=== PATIENT | male | born 1960 | race Caucasian/White ===

== ENCOUNTER 2018-03-06 10:57 | Observation (INO) | payer SELFPAY ==
[2018-03-06 11:36] LABS: ABS Basophils 0 10^3/ul (0-0.2); ABS Eosinophils 0.1 10^3/ul (0-0.6); ABS Lymphocytes 1.4 10^3/ul (1.0-4.8); ABS Monocytes 0.6 10^3/ul (0-0.8); ABS Neutrophils 5.1 10^3/ul (1.5-7.7); ABS Nucleated RBC 0 10^3/ul; Eosinophil % 1.5 % (0-6); Hematocrit 44 % (42-52); Hemoglobin 15.1 g/dl (14.0-18.0); Lymphocyte % 19.4 % (25-47); Mean Corpuscular HGB Conc 35 g/dl (31-36); Mean Corpuscular Hemoglobin 32 pg (27-31); Mean Corpuscular Volume 94 fL (80-94); Mean Platelet Volume 7.6 um3 (7.4-10.4); Nucleated Red Blood Cells % 0.1; Platelet Count 235 10^3/ul (150-450); Red Blood Count 4.66 10^6/ul (4.0-5.4); Red Cell Distribution Width 13 % (10.5-15); White Blood Count 7.3 10^3/ul (3.5-10.8)
[2018-03-06 11:47] LABS: EGFR Non-African American 80.1 (>60)
--- NOTE | 2018-03-06 12:11 | RAD ---
Indication: Chest pain. 2 views of the chest including dual energy PA views demonstrate no mediastinal shift. Heart is of normal size and configuration. Lung pitt appear clear. IMPRESSION: NO ACTIVE CARDIOPULMONARY DISEASE IS IDENTIFIED.
[2018-03-06] MEDS ORDERED: Nitroglycerin TAB 0.4 MG* 0.4 MG TAB SL PRN (12:36)
[2018-03-06] MEDS ORDERED: Acetaminophen TAB* 325 MG PO PRN (12:36)
--- NOTE | 2018-03-06 13:27 | ED ---
Shannan Gutierrez Rebecca, scribed for Mandy Ventura MD on 03/06/18 at 1113 . Palpitations / Dysrhythmia - HPI Summary HPI Summary: Pt is a 57 y/o M accompanied by his , Faustina, who presents to ED after being referred by his PCP for EKG changes. Pt was seen by his PCP, Dr. Hearn in [place], [place], this morning as a follow up after being evaluated by [facility] on 03/03/18. While at his PCP's office, his PCP noticed EKG changes and referred him to [facility]. Pt was seen 3 days ago (Tuesday, 03/03) at [facility]'s ED due to chest tightness and elevated BP. Pt began experiencing chest tightness that was also in the back, across the shoulder blades, (03/02, 4 days ago) afternoon. That day, his BP was elevated at home, being measured in the mid-140s /[id number], and his HR was also slightly higher than usual. He woke up at 0230 Tuesday morning with continued chest tightness and elevated BP (155/105) and a pulse of 90 bpm. He then went to [facility] where he had a CXR, EKG, and 2 neg troponins (3 hours apart) and a neg d dimer, and was given 1 NTG which did not change symptoms as well as a Duoneb which slightly improved symptoms. CXR and troponins were negative. He was D/C with Prednisone and Albuterol, neither of which have been used today. His chest tightness resolved gradually over the weekend, mostly improved on Tuesday (03/04, 2 days ago), and completely resolved on Tuesday (03/05, yesterday). Currently denies any CP. Was given 2x [address] Hearn's office today. Last stress test was ~30 years ago and he does not have a distance learning administrator. PMHx HTN (takes Lisinopril 10 mg), HLD (takes Atorvastatin 10 mg); Negative PMHx asthma and DM. FHx CAD (father - MT and CABG in his early 60s) and stroke ( father - at 69). No PSHx. - History of Current Complaint Chief Complaint: EDDysrhythmPalp Time Seen by Provider: 03/06/18 11:12 Hx Obtained From: Patient, Family/Heel Caser - , Medical Records - from [facility] and Dr. Hearn's office Onset/Duration: Lasting Days - (4 days ago) through Tuesday (yesterday) , Resolved - No chest tightness at present, Other - EKG changes present Timing: Intermittent Episodes Lasting: - hours Severity Initially: Moderate Severity Currently: None Character: Pounding - tightness in chest Aggravating: Nothing Alleviating: Other - Duoneb (slightly imrpoved chest tightness at [facility]) Associated Signs & Symptoms: Negative - Risk Factors Cardiac: Hypertension, Elevated Lipids, Family History Pulmonary Embolism: Negative - Allergy/Home Medications Allergies/Adverse Reactions: Allergies Allergy/AdvReac Type Severity Reaction Status Date / Time No Known Allergies Allergy Verified 03/06/18 11:10 Home Medications: Home Medications Atorvastatin* [Lipitor*] 10 mg PO DAILY 03/06/18 [History Confirmed 03/06/18] Lisinopril TAB* [Prinivil TAB*] 10 mg PO DAILY 03/06/18 [History Confirmed 03/06] PMH/Surg Hx/FS Hx/Imm Hx Previously Healthy: No Endocrine/Hematology History: Denies: Hx Diabetes Cardiovascular History: Reports: Hx Hypercholesterolemia, Hx Hypertension Respiratory History: Denies: Hx Asthma - Surgical History Surgery Procedure, Year, and Place: none Infectious Disease History: No Infectious Disease History: Denies: Traveled Outside the [place] in Last 30 Days - Family History Known Family History: Positive: Cardiac Disease - father in his 60's, had CABG , Other - Stroke (father) - Social History Occupation: Employed Full-time - works with horses at [employer] Lives: With Family Alcohol Use: Daily Substance Use Type: Reports: None Smoking Status (MU): Never Smoked Tobacco Review of Systems Negative: Fever Positive: Other - EKG changes. Negative: Chest Pain - no CP presently Respiratory: Negative Gastrointestinal: Negative Musculoskeletal: Negative Skin: Negative Neurological: Negative Psychological: Normal All Other Systems Reviewed And Are Negative: Yes Physical Exam - Summary Physical Exam Summary: Appearance: Well-appearing, no pain distress, Well-nourished, hypertensive Skin: Warm, color reflects adequate perfusion, dry Head: Normal Head/Face inspection, Atraumatic Eyes: Conjunctiva clear ENT: Normal inspection Neck: Supple, no nodes, no JVD. Respiratory: Lungs clear, Normal breath sounds, no respiratory distress Cardio: RRR, No murmur, pulses normal, brisk capillary refill Abdomen: soft, nontender Bowel sounds: present Musculoskeletal: Strength Intact/ ROM intact. No calf tenderness. No edema. Psychological: Normal Neuro: Alert, muscle tone normal, no focal deficit Triage Information Reviewed: Yes Vital Signs On Initial Exam: Initial Vitals Temp Pulse Resp BP Pulse Ox 98.5 F 77 22 173/112 97 03/06/18 11:08 03/06/18 11:08 03/06/18 11:08 03/06/18 11:08 03/06/18 11:08 Vital Signs Reviewed: Yes Diagnostics - Vital Signs Vital Signs Temp Pulse Resp BP Pulse Ox 03/06/18 11:08 98.5 F 77 22 173/112 97 - Laboratory Lab Results: Lab Results 03/06/18 03/06/18 03/06/18 Range/Units 11:13 11:13 11:13 WBC 7.3 (3.5-10.8) 10^3/ul RBC 4.66 (4.0-5.4) 10^6/ul Hgb 15.1 (14.0-18.0) g/dl Hct 44 (42-52) % MCV 94 (80-94) fL MCH 32 H (27-31) pg MCHC 35 (31-36) g/dl RDW 13 (10.5-15) % Plt Count 235 (150-450) 10^3/ul MPV 7.6 (7.4-10.4) um3 Neut % (Auto) 70.7 (38-83) % Lymph % (Auto) 19.4 L (25-47) % [place] % (Auto) 7.8 H (0-7) % Eos % (Auto) 1.5 (0-6) % Baso % (Auto) 0.6 (0-2) % Absolute Neuts (auto) 5.1 (1.5-7.7) 10^3/ul Absolute Lymphs (auto) 1.4 (1.0-4.8) 10^3/ul Absolute Monos (auto) 0.6 (0-0.8) 10^3/ul Absolute Eos (auto) 0.1 (0-0.6) 10^3/ul Absolute Basos (auto) 0 (0-0.2) 10^3/ul Absolute Nucleated RBC 0 10^3/ul Nucleated RBC % 0.1 APTT 31.2 (26.0-36.3) seconds Sodium 139 (139-145) mmol/L Potassium 3.9 (3.5-5.0) mmol/L Chloride 103 (101-111) mmol/L Carbon Dioxide 28 (22-32) mmol/L Anion Gap 8 (2-11) mmol/L BUN 18 (6-24) mg/dL Creatinine 0.97 (0.67-1.17) mg/dL Est GFR ( Amer) 103.0 (>60) Est GFR (Non-Af Amer) 80.1 (>60) BUN/Creatinine Ratio 18.6 (8-20) Glucose 117 H (70-100) mg/dL Lactic Acid (0.5-2.0) mmol/L Calcium 9.2 (8.6-10.3) mg/dL Magnesium 2.0 (1.9-2.7) mg/dL Total Bilirubin 0.50 (0.2-1.0) mg/dL AST 26 (13-39) U/L ALT 29 (7-52) U/L Alkaline Phosphatase 58 (34-104) U/L CK-MB (CK-2) 4.2 (0.6-6.3) ng/mL Troponin I 0.00 (<0.04) ng/mL Total Protein 7.1 (6.4-8.9) g/dL Albumin 4.3 (3.2-5.2) g/dL Globulin 2.8 (2-4) g/dL Albumin/Globulin Ratio 1.5 (1-3) / Range/Units 11:13 WBC (3.5-10.8) 10^3/ul RBC (4.0-5.4) 10^6/ul Hgb (14.0-18.0) g/dl Hct (42-52) % MCV (80-94) fL MCH (27-31) pg MCHC (31-36) g/dl RDW (10.5-15) % Plt Count (150-450) 10^3/ul MPV (7.4-10.4) um3 Neut % (Auto) (38-83) % Lymph % (Auto) (25-47) % [place] % (Auto) (0-7) % Eos % (Auto) (0-6) % Baso % (Auto) (0-2) % Absolute Neuts (auto) (1.5-7.7) 10^3/ul Absolute Lymphs (auto) (1.0-4.8) 10^3/ul Absolute Monos (auto) (0-0.8) 10^3/ul Absolute Eos (auto) (0-0.6) 10^3/ul Absolute Basos (auto) (0-0.2) 10^3/ul Absolute Nucleated RBC 10^3/ul Nucleated RBC % APTT (26.0-36.3) seconds Sodium (139-145) mmol/L Potassium (3.5-5.0) mmol/L Chloride (101-111) mmol/L Carbon Dioxide (22-32) mmol/L Anion Gap (2-11) mmol/L BUN (6-24) mg/dL Creatinine (0.67-1.17) mg/dL Est GFR ( Amer) (>60) Est GFR (Non-Af Amer) (>60) BUN/Creatinine Ratio (8-20) Glucose (70-100) mg/dL Lactic Acid 1.6 (0.5-2.0) mmol/L Calcium (8.6-10.3) mg/dL Magnesium (1.9-2.7) mg/dL Total Bilirubin (0.2-1.0) mg/dL AST (13-39) U/L ALT (7-52) U/L Alkaline Phosphatase (34-104) U/L CK-MB (CK-2) (0.6-6.3) ng/mL Troponin I (<0.04) ng/mL Total Protein (6.4-8.9) g/dL Albumin (3.2-5.2) g/dL Globulin (2-4) g/dL Albumin/Globulin Ratio (1-3) Result Diagrams: 03/06/18 11:13 03/06/18 11:13 Lab Statement: Any lab studies that have been ordered have been reviewed, and results considered in the medical decision making process. - Radiology CXR Xray Interpretation: No Acute Changes - NO ACTIVE CARDIOPULMONARY DISEASE IS IDENTIFIED. ED physician reviewed this radiology report. Radiology Interpretation Completed By: Radiologist - EKG 1106 Cardiac Rate: NL - 81 bpm EKG Rhythm: Sinus Rhythm EKG Interpretation: 0.[address] elevations in leads 2, 3, and aVF, prolonged IVCT (113), nl QTC Re-Evaluation - Re-Evaluation First Eval Re-Evaluation Time: 11:56 Change: Unchanged Comment: Updated patient and on admission status. Course/Dx - Course Assessment/Plan: Pt is a 57 y/o M accompanied by his , Faustina, who presents to ED after being referred by his PCP for EKG changes. Pt was seen by his PCP, Dr. Hearn in [place], [place], this morning as a follow up after being evaluated by [facility]. While there, his PCP noticed EKG changes and referred him to [facility]. At [facility] on 03/03/18 pt had neg trop x 2 and neg d dimer, and EKG in Dr. Hearn's office is changed c/w EKG in [facility]. Currently denies any CP. Was given 2x [address] Hearn's office today. Last stress test was ~30 years ago and he does not have a distance learning administrator. PMHx HTN (takes Lisinopril 10 mg), HLD (takes Atorvastatin 10 mg); Negative PMHx asthma and DM. FHx CAD (father - MT and CABG in his early 60s) and stroke ( father - at 69). No PSHx. In [facility] ED course, bloodwork was done, including a troponin of 0.00. CXR reveals no acute findings. EKG done at [address] elevations in leads 2, 3, and aVF, with prolonged IVCT (113), nl QTC and an axis of 5 with sinus rhythm at a rate of 81 bpm. Discussed care of pt with Dr. Fontenot who accepts pt for admission. Pt is stable and will be admitted with Dx of HTN under poor control and EKG abnormalities. High BP noted. Pt medications reviewed this visit. - Diagnoses Differential Diagnosis/HQI/PQRI: Positive: Congestive Heart Failure, Coronary Artery Disease, Pulmonary Embolism Provider Diagnoses: EKG abnormalities, Hypertension, poor control - Physician Notifications Discussed Care Of Patient With: Sukichelsea Fontenot Time Discussed With Above Provider: 11:54 Instructed by Provider To: Admit As Observation Discharge - Sign-Out/Discharge Documenting (check all that apply): Discharge/Admit/Transfer - Admit - Discharge Plan Condition: Stable Disposition: ADMITTED TO [facility] Referrals: Li Hearn MD [Primary Care Provider] - - Billing Disposition and Condition Condition: STABLE Disposition: [facility] The documentation as recorded by the Shannan gagnon Rebecca accurately reflects the service I personally performed and the decisions made by , Mandy Ventura MD.
--- NOTE | 2018-03-06 14:32 | HP ---
CC: Dr. Li Hearn * HISTORY AND PHYSICAL: DATE OF ADMISSION: 03/06/18 TIME OF EVALUATION: 12:15 p.m. CHIEF COMPLAINT: Chest pain. HISTORY OF PRESENT ILLNESS: Mr. Solis is a 57-year-old male with a past medical history of hypertension, hyperlipidemia that on 03/02/18 developed retrosternal discomfort radiating to his back that he thought was secondary to spicy food. He went home, the discomfort persisted, he checked his blood pressure and it was 140/90. He states that this is an elevated number for him, but it can happen after he has a stressful day at work. Overnight he woke up and the chest discomfort was more intense. His measured his blood pressure, it was 150/100 and he decided to go to the emergency room at [facility] for further evaluation. Records from [place] state the patient was complaining of mid sternal chest pressure not associated with diaphoresis, nausea, or shortness of breath. His EKG was read as normal ST-T. He was described as being very hypertensive with blood pressure of 164/113. He received aspirin, sublingual nitro, and his blood pressure improved, but he still had some chest tightness. He also received a DuoNeb and he states that he was able to breathe a little better after that. He had serial troponins and a D-dimer that were negative and he was discharged with albuterol and prednisone to follow up with Cardiology for an outpatient stress test. The patient states he did not take the prednisone and the albuterol and initially he was feeling better. He states that today he had an appointment with his primary care provider and by the time he went to see her his chest discomfort was completely resolved. She performed an EKG in her office and found that he had ST elevations in II, aVL, and aVF with ST straightening in V4 to V6 and this was new when compared to the prior EKG she had from August 2016, so for that reason she referred him back to the emergency room and the patient elected to come to our facility instead of going back to [place]. He states that when the pain was severe it was 5/10 with a squeezing sensation like he could not take a deep breath. The pain was also worse when he leaned forward. He denies fever, chills, cough, lower extremity pain or edema. He states that he last had a severe cold in November, but since then has been feeling well. He states that once a month he travels to [facility] as they have a home there, last time was a month ago, but he states that he takes precautions during the trips, stopping multiple times to walk around. He denies nausea, vomiting, diarrhea, or urinary symptoms. PAST MEDICAL HISTORY: 1. Hypertension. 2. Hyperlipidemia. MEDICATION LIST: 1. Lisinopril 10 mg p.o. daily. 2. Atorvastatin 10 mg p.o. daily. ALLERGIES: No known drug allergies. FAMILY HISTORY: Father had high cholesterol, gout, lymphoma, hypertension, coronary artery disease, and passed with stroke. His mother had factor V Leiden deficiency, possible Emely Gehrig's disease. One of his brothers has hyperlipidemia. SOCIAL HISTORY: The patient denies tobacco abuse. He drinks 1 drink a day, usually wine. 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 Surrogate decision maker is his , Ayah Solis, phone number is [phone]. REVIEW OF SYSTEMS: A 14-point review of systems was performed and all the pertinent negative and positive findings are in the HPI. PHYSICAL EXAMINATION GENERAL: The patient is a pleasant gentleman, sitting up in the ER stretcher, in no acute distress. VITAL SIGNS: Temperature 98.5, heart rate is 77, respiratory rate is 19, oxygen saturation is 96% on room air, blood pressure is 148/98. NECK: There are no bruits. CHEST: Breath sounds present bilaterally with no added sounds. CVS: Normal S1, S2. Regular rate and rhythm. ABDOMEN: Soft, nontender, nondistended. Bowel sounds are present. EXTREMITIES: The patient has chronic skin discoloration with dystrophic nails suggestive of venous insufficiency. There is no edema, no calf tenderness. NEURO: He is alert, oriented x3. Able to move all 4 extremities. LABORATORY AND IMAGING DATA: The patient had a CBC that showed a WBC of 7.3, hemoglobin of 15.1, hematocrit of 44, platelets of 235 with 70% neutrophils. APTT is 31. Chemistry showed a sodium of 139, potassium of 3.9, chloride of 103 , bicarb of 29, BUN of 18, creatinine of 0.97, glucose of 117, lactic acid of 1.6, calcium of 9.2, magnesium of 2. LFTs are normal. First troponin was negative. Chest x-ray showed no active cardiopulmonary disease and EKG done on 03/06/18 at [address] elevations in leads II, aVL and mild in V4, V5; similar to the EKG he had done at his PCP today. ASSESSMENT AND PLAN: Mr. Solis is a 57-year-old male with a past medical history of hypertension and hyperlipidemia that presented to the emergency room with complaints of chest pain. 1. Chest pain, rule out acute coronary syndrome. The patient's chest pain has multiple different factors that are suggestive for etiologies. He says the pain was retrosternal radiating to his back and initially he thought it was something GI related associated with spicy food he had eaten. As the pain persisted and he was hypertensive he thought it could be something cardiac. The fact that the pain got worse when he leaned forward associated with the ST elevation with normal troponins may suggest pericarditis, but he denies any recent infectious process. He states the last time he was sick was in November. Also the fact that he was hypertensive, the pain was radiating to his back, it is concerning for dissection. The patient will be admitted to telemetry floor. We are going to check serial troponins. He is going to have a CTA to rule out dissection and if all those tests are negative he will then have an exercise Myoview stress test. The likelihood of pulmonary embolism at this point is low even though he had a trip to [facility] earlier this month. His D-dimer was negative in the emergency room in [place] and he has no lower extremity edema or calf pain and other diagnoses are more likely than pulmonary embolism at this point. He already received an aspirin. We are going to continue his atorvastatin and lisinopril. 2. Hypertension. It is borderline elevated at this time, but on ER arrival it was 173/112 and I suspect the patient will need a higher dose of lisinopril on discharge. 3. Hyperlipidemia. We will continue atorvastatin. 4. DVT prophylaxis: The patient has a score of 2 on the DVT Prophylaxis Risk Assessment Guide and he will be started on subcutaneous heparin. 5. Code status is full. TIME SPENT: Approximately 55 minutes was spent with the patient and 's interview, medical records review, physical examination to complete this admission, more than half of this time was spent [id number] with the patient and coordination of care. [id number]/[facility] #: [id number] TIO
[2018-03-06] MEDS: Heparin VIAL(*) 5000 UNITS/ML VIAL (FIVE THOUSAND) SUBCUT SCH ×2 (14:33→21:07)
[2018-03-06] MEDS: Aspirin EC TAB* 81 MG TAB.EC PO SCH (14:34)
[2018-03-06] MEDS: Atorvastatin* 10 MG TAB PO SCH (14:37)
[2018-03-06] MEDS: Lisinopril TAB* 10 MG PO SCH (14:37)
[2018-03-06] MEDS ORDERED: Iohexol 350* (CONTRAST) 500 ML MDV IV ONE (15:53)
--- NOTE | 2018-03-06 16:23 | ECHO ---
Patient: [facility] Rec#: [id number] : 1960 Date: 03/06/2018 Age: 57y Height: 190.5 cm / 75.0 in Weight: 101.15 kg / 222.9 lbs Sex: M BSA: 2.3 Room#: 443 Admit Date#: 03/06/2018 Type: Inpatient Referring: Suki Ambrosio MD Reading: Cy Castle DO Mobile Marketing Manager: Parisa Robledo,ELSACS,RDMS CC: Li Hearn MD Transthoracic Echocardiogram Indication: CP, ABN EKG BP: 153/93 HR: 75 Rhythm: NSR Findings History: HTN, HLD Technical Comments: The study quality is good. Left Ventricle: The left ventricular chamber size is normal. Mild concentric left ventricular hypertrophy is observed. Global left ventricular wall motion and contractility are within normal limits. There is normal left ventricular systolic function. The estimated ejection fraction is 55-60%. There is no consistent Doppler evidence of clinically significant diastolic dysfunction. Left Atrium: The left atrial chamber size is normal. Right Ventricle: The right ventricular chamber size and systolic function are within normal limits. Right Atrium: The right atrium is slightly dilated. Aortic Valve: The aortic valve is trileaflet. There is no evidence of aortic valve thickening. Systolic excursion of the aortic valve is normal. There is a trace of aortic regurgitation. There is no evidence of aortic stenosis. Mitral Valve: The mitral valve leaflets appear normal. There is a trace of mitral regurgitation. There is no evidence of mitral stenosis. Tricuspid Valve: The tricuspid valve leaflets are normal. There is mild tricuspid regurgitation. There is evidence of mild pulmonary hypertension. Pulmonic Valve: The pulmonic valve appears normal. There is a trace pulmonic regurgitation. There is no pulmonic stenosis. Pericardium: There is no significant pericardial effusion. Aorta: There is mild dilatation of the ascending aorta. There is no dilatation of the aortic arch. There is mild dilatation of the aortic root. Pulmonary Artery: The main pulmonary artery appears normal. Venous: The inferior vena cava is not visualized. Conclusions The left ventricular chamber size is normal. Mild concentric left ventricular hypertrophy is observed. There is normal left ventricular systolic function. The estimated ejection fraction is 55-60% with no obvious segmental wall motion abnormalities noted. The left atrial chamber size is normal. The right ventricular chamber size and systolic function are within normal limits. There is mild tricuspid regurgitation. There is evidence of mild pulmonary hypertension. The aortic root and ascending aorta are 3.8 cm, probably normal for body size None prior for comparison at time of interpretation Measurements Name Value Normal Range RVIDd (AP) 2D 2.8 cm (0.9 - 2.6) RVDdMajor (2D) 3.6 cm (2.2 - 4.4) RAd ISD 4CH 5 cm (3.4 - 4.9) RA (A4C)W 5 cm (2.9 - 4.6) IVSd (2D) 1.3 cm (0.6 - 1) LVPWd (2D) 1.3 cm (0.6 - 1) LVIDd (2D) 5 cm (3.6 - 5.4) LVIDs (2D) 3.3 cm - LV FS (2D) 34 % (25 - 45) Aortic Annulus 2.4 cm (1.4 - 2.6) Ao root diameter (2D) 3.8 cm (2.1 - 3.5) Ascending Ao 3.8 cm (2.1 - 3.4) Aortic arch 3.2 cm (1.8 - 3.4) LA dimension (AP) 2D 3.7 cm (2.3 - 3.8) LAd ISD 4CH 5.5 cm (2.9 - 5.3) LA ISD 4CH W 4.4 cm (2.5 - 4.5) Name Value Normal Range LA ESV SP 4CH (A/L) 56.06 ml - LA ESV SP 2CH (A/L) 67.81 ml - LA ESV BP (A/L) 62.74 ml - LA ESV BP (A/L) index 27 ml/m2 - LA ESV SP 4CH (MOD) 53.4 ml - LA ESV SP 2CH (MOD) 64.86 ml - Name Value Normal Range MV E-wave Vmax 0.7 m/sec - MV deceleration time 166 msec - MV A-wave Vmax 0.6 m/sec - MV E:A ratio 1.3 ratio - P. vein S-wave Vmax 0.5 m/sec - P. vein D-wave Vmax 0.5 m/sec - P. vein S:D Vmax ratio 1 ratio - P. vein A-wave duration 128 msec - LV septal e' Vmax 0.05 m/sec - LV lateral e' Vmax 0.07 m/sec - LV E:e' septal ratio 16 ratio - LV E:e' lateral ratio 10 ratio - Name Value Normal Range AV Vmax 1.1 m/sec - AV VTI 22.3 cm - AV peak gradient 5 mmHg - AV mean gradient 3.4 mmHg - LVOT Vmax 0.9 m/sec - LVOT VTI 16.8 cm - LVOT peak gradient 3.2 mmHg - LVOT mean gradient 1.8 mmHg - VON Vmax 0.9 m/sec - Name Value Normal Range TR Vmax 3 m/sec - TR peak gradient 36 mmHg - RAP 3 mmHg - RVSP 39 mmHg - Name Value Normal Range PV Vmax 0.6 m/sec - PV peak gradient 1.4 mmHg -
--- NOTE | 2018-03-06 16:52 | RAD ---
INDICATION: Chest and back pain; assess for aortic dissection. COMPARISON: March 06, 2018 chest radiograph. TECHNIQUE: Multidetector CT images were obtained from the lung apices to the ischial tuberosities with 98 mL Omnipaque 350 IV contrast. Arterial phase series. Multiplanar reformation including maximum intensity projection and 3-D arterial volume rendering. No oral contrast administered. CHEST REPORT: 0.9 cm calcified granuloma at the posterior segment of the RIGHT upper lobe without concern. No suspicious focal pulmonary lesions evident. Negative for pleural effusions or pneumothorax. Small calcified RIGHT hilar lymph node noted. Negative for thoracic lymphadenopathy, cardiomegaly, or pericardial effusion. Normal diameter thoracic aorta. Negative for dissection of the thoracic aorta. Unremarkable central pulmonary arteries. Negative for suspicious thoracic osseous lesions or fractures. CHEST IMPRESSION: 1. Negative for aneurysm or dissection of the thoracic aorta. 2. Stigmata of prior granulomatous disease with calcified granuloma at the RIGHT upper lobe and small calcified RIGHT hilar lymph nodes. No acute thoracic inflammatory process evident. ABDOMEN PELVIS REPORT: Innumerable small sharply circumscribed water density lesions of the liver consistent with cysts with dominant 2.8 cm cyst at the RIGHT anterior hepatic segment. No suspicious focal hepatic lesions evident within limits of arterial phase only series. No CT abnormality of the gallbladder. Negative for biliary dilatation. Unremarkable pancreas and spleen. Negative for CT abnormality of the upper GI, small bowel, or colon. While the appendix is not discretely visualized, there is no inflammatory change in the right lower quadrant or region of the tip of the cecum to suggest presence of an acute inflammatory process. Negative for ascites, free air, or significant hernias. Normal adrenal glands. Unremarkable kidneys with symmetric cortical phase enhancement. Unremarkable ureters and largely decompressed urinary bladder. Phleboliths noted adjacent to the distal LEFT ureter. Symmetric seminal vesicles. Few calcifications at the prostate. Negative for lymphadenopathy. Normal diameter abdominal aorta and iliac arteries. Negative for significant atherosclerotic plaque. Negative for arterial dissection. Unremarkable visceral artery origins. Negative for suspicious focal osseous lesions or fractures. Advanced L4-L5 and L5-S1 degenerative spondylosis and facet joint osteoarthritis rudimentary disc space at the S1-S2 level with partial lumbarization of S1. ABDOMEN PELVIS IMPRESSION: 1. No evidence for aneurysm or dissection of the abdominal aorta. 2. Innumerable small sharply circumscribed water density lesions of the liver consistent with cysts with dominant 2.8 cm cyst at the RIGHT anterior hepatic segment. No suspicious focal hepatic lesions evident within limits of arterial phase only series. Correlate with clinical assessment and consider hepatic ultrasound to confirm that the noted lesions represent cysts. 3. While the appendix is not discretely visualized, there is no inflammatory change in the right lower quadrant or region of the tip of the cecum to suggest presence of an acute inflammatory process. 4. Advanced L4-L5 and L5-S1 degenerative spondylosis and facet joint osteoarthritis rudimentary disc space at the S1-S2 level with partial lumbarization of S1.
[2018-03-07] MEDS: Heparin VIAL(*) 5000 UNITS/ML VIAL (FIVE THOUSAND) SUBCUT SCH ×2 (06:00→13:38)
[2018-03-07 07:50] VITALS: BP 150/90
[2018-03-07] MEDS: Aspirin EC TAB* 81 MG TAB.EC PO SCH (08:56)
[2018-03-07] MEDS: Lisinopril TAB* 10 MG PO SCH (08:56)
[2018-03-07] MEDS: Atorvastatin* 10 MG TAB PO SCH (08:56)
--- NOTE | 2018-03-07 12:49 | RAD ---
Edited for charges. INDICATION: Chest pain COMPARISON: CT the chest/abdomen/pelvis March 06, 2018 TECHNIQUE: A single day SPECT protocol was utilized. Rest images were acquired following the intravenous injection of 10.8 millicuries of technetium 99m tetrofosmin. Exercise stress images were acquired following the intravenous administration of 26.3 millicuries of technetium 99m tetrofosmin. The patient was exercised to a peak heart rate of 154 which is 92 of age predicted maximum. FINDINGS: There are no defects of the stress-induced or fixed nature. There is attenuation artifact in the lateral wall which resolves with attenuation correction. The cardiac chamber size is normal. There are no wall motion abnormalities. The ejection fraction is calculated at 53 percent during stress. IMPRESSION: NO FIXED OR ISCHEMIC DEFECT. ASSESSMENT: LOW-RISK Based on imaging criteria from ACC/AHA 2002 Guideline Update for the Management of Patients With Chronic Stable Angina Table 23. Noninvasive Risk Stratification. MTDD
--- NOTE | 2018-03-08 06:13 | DS ---
CC: Dr. Li Hearn * DISCHARGE SUMMARY: DATE OF ADMISSION: 03/06/18 DATE OF DISCHARGE: 03/07/18 PRIMARY CARE PROVIDER: Dr. Li Hearn in [place]. PRIMARY DIAGNOSIS: Chest discomfort/tightness. SECONDARY DIAGNOSIS: Include hypertension. MEDICATIONS ON DISCHARGE: Include; 1. Lisinopril 10 mg. 2. Atorvastatin 10 mg. PERTINENT LABORATORY DATA: During the course of the hospital stay, troponin I 0.00 on three consecutive checks. PERTINENT IMAGIN. Exercise stress with nuclear imaging. Assessment: Low risk, no fixed or ischemic defects. 2. Transthoracic echocardiogram. Impression: Mild concentric left ventricular hypertrophy with normal left ventricular systolic function with estimated EF 55% to 60%. Left atrial chamber size is normal. Right ventricular chamber size systolic function are normal. There was mild TR, evidence of mild pulmonary hypertension. The aortic root and ascending aorta are 3.8 cm. 3. CTA of chest, abdomen, and pelvis. Impression: No evidence for aneurysm or aneurysmal dissection of the abdominal aorta. Stigmata of prior granulomatous disease with calcified granuloma at the right upper lobe and small calcified right hilar lymph nodes. No acute thoracic inflammatory process evident. Unremarkable central pulmonary arteries. 4. Bold and innumerable small sharply circumscribed water density lesions of the liver consistent with cysts with dominant 2.8 cm cyst at the right anterior hepatic segment. No suspicious focal hepatic lesions evident within limits of arterial phase on these series. Advanced L4-L5 and L5-S1 degenerative spondylosis and facet joint osteoarthritis, partial lumbarization of S1. HISTORY OF PRESENT ILLNESS AND HOSPITAL COURSE: This is a 57-year-old man with past medical history as outlined in the history of present illness on the day of admission, presented to the hospital with chest discomfort described as a tightness as well as difficulty, but that was worse when taking deep breath and lying flat. He was seen in [place], discharged home and then seen again in his primary care office where EKG in our office was concerning for ST elevation to aVL, aVF for which he has re-referred back to the hospital. The patient underwent a stress test as normal as indicated above as well as transthoracic echocardiogram again noted to be normal. There was no ST elevations on his EKG. CT of chest, abdomen, and pelvis without central pulmonary artery, pulmonary embolisms, although noted the numerous cyst-like findings in his liver. His pain completely abated without intervention. On the day of discharge, the patient fell back to his baseline and had no pleurisy, no chest pain, and no chest tightness. He was noted to have a hypertensive response to exercise stress. DISCHARGE INSTRUCTIONS: At followup, please; 1. Consider ultrasound of the liver to evaluate and corroborate CT findings as indicated above. 2. Recommend titrating up antihypertensives in the setting of hypertensive response to exercise stress test. 3. No other specific labs or vitals that need followup. Reasons to return to the hospital include, but not limited to recurrent or worsening symptoms including chest pain, shortness of breath, pleurisy, nausea, vomiting, lightheadedness, diaphoresis, loss of consciousness, near loss of consciousness, bleeding from any sources are discussed with the patient. He acknowledged understanding. TIME SPENT: Greater than 45 minutes was spent on the discharge of the patient, greater than half spent [id number] with the patient. [id number]/CPS #: [id number] TIO
== END 2018-03-07 15:15 | disposition home or self-care (01) ==
LOC: ED 10:57 → MEDTELE 12:20
PROVIDERS: ADMIT Internal Medicine; ATTEND Internal Medicine
DX: R07.89 Other chest pain (principal); I10 Essential (primary) hypertension; R94.31 Abnormal electrocardiogram [ECG] [EKG]; I38 Endocarditis, valve unspecified; E78.5 Hyperlipidemia, unspecified
CPT/HCPCS: 36415; 71046; 71275; 74174; 78452; 80053; 82553; 83605; 83735; 84484; 85025; 85730; 93005; 93017; 93306; 99284; A9270-GY; A9502; G0378; J1644; Q9967

== ENCOUNTER 2019-03-27 15:40 | Emergency (ER) | payer BC ==
[2019-03-27 16:28] VITALS: BP 146/89
[2019-03-27] MEDS ORDERED: Lidocaine 1%* 5 ML VIAL INJ ONE (16:49)
--- NOTE | 2019-03-27 16:49 | UC ---
Laceration HPI - HPI Summary HPI Summary: 58 y/o male presents to the urgent care c/o laceration on left hand below the left thumb w/ a rototiller s/p cleaning some weeds around 1430pm today. Bleeding stopped w/ pressure. He can move all fingers and hand w/o any problem. Pt is no sure if tetanus vaccines is less than 5 years. Pain at touch is 5/10. Pt denies fever, numbness or tingling sensation over the left hand, SOB , chest pain , abdominal pain, N/V/D. - History Of Current Complaint Chief Complaint: UCLaceration Stated Complaint: LEFT HAND LAC Time Seen by Provider: 03/27/19 16:47 Hx Obtained From: Patient Laceration Location: Hand - left hand laceration Mechanism Of Injury: Sharp Trauma Onset/Duration: Sudden Onset, Lasting Hours - 2 hrs Severity: Moderate Pain Intensity: 5 Pain Scale Used: 0-10 Numeric Aggravating Factors: Other: - touch Related History: Dominant Hand Right - Allergies/Home Medications Allergies/Adverse Reactions: Allergies Allergy/AdvReac Type Severity Reaction Status Date / Time No Known Allergies Allergy Verified 03/27/19 16:28 PMH/Surg Hx/FS Hx/Imm Hx Previously Healthy: Yes Cardiovascular History: Hypertension - Surgical History Surgical History: None Surgery Procedure, Year, and Place: none - Family History Known Family History: Positive: Cardiac Disease - father in his 60's, had CABG , Hypertension, Other - Stroke (father) - Social History Occupation: Retired Lives: With Family Alcohol Use: Daily Alcohol Amount: 2/day Substance Use Type: None Smoking Status (MU): Never Smoked Tobacco Have You Smoked in the Last Year: No - Immunization History Most Recent Tetanus Shot: not sure it is less than 5 years Hx Tetanus, Diphtheria Vaccination: No - not sure it is less than 5 years Review of Systems All Other Systems Reviewed And Are Negative: Yes Constitutional: Positive: Negative Skin: Positive: Other - laceration of left hand palmar side Eyes: Positive: Negative ENT: Positive: Negative Respiratory: Positive: Negative Cardiovascular: Positive: Negative Gastrointestinal: Positive: Negative Genitourinary: Positive: Negative Motor: Positive: Negative Neurovascular: Positive: Negative Musculoskeletal: Positive: Other: - left palmar side pain s/p laceration Neurological: Positive: Negative Psychological: Positive: Negative Is Patient Immunocompromised?: No Physical Exam - Summary Physical Exam Summary: Vital Signs Reviewed: Yes General: well developed, well nourished male sitting in the examining table w/o any apparent distress Eye Exam: Normal Eyes: Positive: Conjunctiva Clear - PERRLA, EOMI, fundi grossly normal ENT: Positive: Normal ENT inspection, Hearing grossly normal, Pharynx normal, TMs normal Neck: Positive: Supple, Nontender, No Lymphadenopathy Respiratory: Positive: Chest non-tender, Lungs clear, Normal breath sounds, No respiratory distress Cardiovascular: Positive: RRR, No Murmur, Pulses Normal, Brisk Capillary Refill Abdomen Description: Positive: Nontender, No Organomegaly, Soft. Negative: CVA Tenderness (R), CVA Tenderness (L) Bowel Sounds: Positive: Present Musculoskeletal: Positive: Strength Intact, ROM Intact, No Edema Neurological: Positive: Alert, Muscle Tone Normal Psychological Exam: Normal Skin: Positive: left hand over thenar eminence with a linear superficial laceration involving eht epidermis and subcutaneous tissue about 4.0cm in size , bleeding, no foreign body observed. mild tenderness to palpation, no ecchymosis. FROM of all fingers and hand, sensation intact, capillary refill brisk, and pulses WNL. Triage Information Reviewed: Yes Vital Signs: Initial Vital Signs Temp 98.1 F 03/27/19 16:25 Pulse 100 03/27/19 16:25 Resp 16 03/27/19 16:25 BP 146/89 03/27/19 16:25 Pulse Ox 100 03/27/19 16:25 Laceration Repair - Laceration Repair 1 Description: Linear - superficial laceration over the thenar emminence of the left hand Laceration Size After Repair: Length (cm) - 4.0cm Modified For Repair: No Anesthesia Used: 1.0% Lido - 2ml Cleansing Completed Via Routine Prep: Yes Irrigation With Pressure Irrigation Device: Yes Closure Material: Sutures - 11 Closure Method: Single Layer Suture Of: Skin, SQ Suture Type: Nylon - 5.0 Laceration Course/Dx - Course/Dx Course Of Treatment: 58 y/o male presents to the urgent care c/o laceration on left hand below the left thumb w/ a rototiller s/p cleaning some weeds around 1430pm today. Bleeding stopped w/ pressure. He can move all fingers and hand w/o any problem. Pt is no sure if tetanus vaccines is less than 5 years. Pain at touch is 5/10. Pt denies fever, numbness or tingling sensation over the left hand, SOB , chest pain , abdominal pain, N/V/D. Hx obtained. Pt w/ left hand over thenar eminence with a linear superficial laceration involving the epidermis and subcutaneous tissue about 4.0cm in size, bleeding, no foreign body observed. mild tenderness to palpation, no ecchymosis. FROM of all fingers and hand, sensation intact, capillary refill brisk, and pulses WNL. LACERATION PROCEDURE NOTE: . Copious irrigation was done with saline by the nurse and the wound explored. There was no FB or deep structure injury noted. FROM of left forearm. procedure was explained and consent obtained, Timeout performed. The wound was anesthetized with 2 mL of 1% lido with good anesthesia. Sterile drape and prep were don. There were 11 sutures with 5.0 nylon type of suture. The length of the wound after closure was 4.0cm. No debridement done. Pt tolerated the procedure well without adverse effects. Neurovascular intact and FROM. Tdap ordered and applied by nurse. Pt advised to f/u suture removal in 10-12 days and if any signs of infection develop to immediately return to the urgent care of PCP for further management and treatment. Pt's BP is elevated today advised to decrease salt in diet, monitor BP and f/u with PCP for further management. Pt understood and agreed and left the clinic ambulating A&Ox3. - Differential Dx - Laceration/Wound Differental Diagnoses: Abrasion, Avulsion, Cellulitis, Laceration, Puncture Wound, Tendon Laceration - Diagnosis Provider Diagnosis: Laceration of left hand, Uncontrolled hypertension Discharge - Sign-Out/Discharge Documenting (check all that apply): Patient Departure - D/C home All imaging exams completed and their final reports reviewed: No Studies - Discharge Plan Condition: Stable Disposition: HOME Patient Education Materials: Care For Your Stitches (DC), Laceration (ED) Referrals: Li Hearn MD [Primary Care Provider] - 1 Week Additional Instructions: 1-Please apply Bacitracin topical antibiotic oint over the wound. Keep wound clean and dry 2- F/u suture removal in 10-12 days days w/ your PCP or here at the urgent care. 3-Take Ibuprofen or Tylenol PO q6-8hrs prn for pain or swelling. 4- If you develop fever or redness around your wound please return to the Urgent care o9r f/u w/ your PCP for further management. 5- Your BP is elevated today. please decrease salt in your diet, monitor BP and if it continues to be elevated please f/u with your PCP for further management. - Billing Disposition and Condition Condition: STABLE Disposition: Home - Attestation Statements Provider Attestation: I was available for consult. This patient was seen by the [facility]. The patient was not presented to, seen by, or examined by me. -Mio
[2019-03-27] MEDS ORDERED: Tetan/Diph/Pertus SYR(Tdap)* 0.5 ML SYR(BOOSTRIX) use SYR IM ONE (17:27)
== END 2019-03-27 17:56 | disposition home or self-care (01) ==
LOC: UCCORT 15:40
DX: W31.89XA Contact with other specified machinery, initial encounter (principal); Y93.89 Activity, other specified; Y92.9 Unspecified place or not applicable; S61.412A Laceration without foreign body of left hand, initial encounter; I10 Essential (primary) hypertension
CPT/HCPCS: 12002; 90715; 99211; G0463